=== PATIENT | male | born 1955 | race Caucasian/White ===

== ENCOUNTER 2017-05-08 16:05 | Emergency (ER) | payer BC ==
[~2017-05-08] VITALS: Ht 188 cm; Wt 139.1 kg
[~2017-05-08 16:05] MED LIST: ASCORBIC ACID500 M3 PO; AUVI-Q0.3 MG/0.3 IM; Benadryl PO; CARDIZEM LA180 MG PO; CIPRO I.V.400 MG/200 IV; CIPROFLOXACIN750 MG PO; COLESTID1 GM PO; Epipen Adult Autoinj IM; FIBERCON625 MG PO; FOLIC ACID1 MG PO; LANOXIN250 MCG PO; LASIX20 MG PO; LOPRESSOR50 MG PO; MULTI VITAMIN1 EACH PO; NO HOME MEDS; PROTONIX40 MG PO; SALINE FLUSH 5 M5 ML IV; Sodium Bicarbonate PO; TIAZAC180 MG PO; TYGACIL50 MG IV; TYLENOL EXTRA500 MG PO; XARELTO20 MG PO; ZOFRAN4 MG/2 ML IV; ZYRTEC10 M3 PO
[2017-05-08 17:41] LABS: CHLORIDE 111 mEq/L (99-109); POTASSIUM 3.9 mEq/L (3.7-5.4); SODIUM 140 mEq/L (136-147)
[2017-05-08 17:42] LABS: HEMATOCRIT 51.3 % (38.0-50.0); HEMOGLOBIN 16.6 G/DL (12.5-16.6); MCH 27.1 PG (29.0-34.0); MCHC 32.4 G/DL (30.0-36.0); MCV 83.7 FL (86-99); PLATELET COUNT 208 K/uL (156-360); RBC DIS.WIDTH-CV 14.2 % (11.8-14.6); RBC DIS.WIDTH-SD 43.3 % (39-53); RED BLOOD COUNT 6.13 M/uL (4.00-5.50); WHITE BLOOD COUNT 22.3 K/uL (4.1-10.2)
[2017-05-08 17:43] LABS: GLUCOSE 186 mg/dL (70-99)
[2017-05-08 17:47] LABS: CREATININE 0.9 mg/dL (0.6-1.3); GFR ESTIMATE (CALCULATED) > 59 mL/min/ (58.99-99999); UREA NITROGEN (BUN) 12 mg/dL (9-23)
[2017-05-08 17:53] LABS: TROP-I INTERPRETATION NEGATIVE; TROPONIN-I 0.05 ng/mL (0.0-0.30)
[2017-05-08] MEDS ORDERED: PEPCID20 MG PO (19:39)
[2017-05-08] MEDS ORDERED: EPIPEN ADU0.3 MG/0.3 IM (19:39)
[2017-05-08] MEDS ORDERED: PREDNISONE50 MG PO (19:39)
[2017-05-08 20:14] VITALS: BP 147/61
== END 2017-05-08 20:15 | disposition home or self-care (01) ==
LOC: EME 16:05
PROVIDERS: Physician Assistant
DX: R22.0 Localized swelling, mass and lump, head (principal); T78.2XXA Anaphylactic shock, unspecified, initial encounter; T63.441A Toxic effect of venom of bees, accidental (unintentional), initial encounter; G47.30 Sleep apnea, unspecified; Z91.030 Bee allergy status; Z88.0 Allergy status to penicillin
CPT/HCPCS: 80048; 84484; 85027; 93005; 99281; 99285; J0171; J1200; J2405; J7040; J7512